=== PATIENT | male | born 1985 | race Caucasian/White ===

== ENCOUNTER → 2016-05-11 | Outpatient (CLI) | payer OTHER ==
--- NOTE | 2016-05-11 17:03 | REP ---
MAXILLOFACIAL CT WITHOUT CONTRAST: HISTORY: Chronic sinusitis. There is complete opacification of the left ethmoid sinus. There is expansion of the left ethmoid sinus. There is extension into the left maxillary, frontal and sphenoid sinuses and left nasal passage. . The left ethmoid sinus septa and left uncinate process are poorly seen. A small defect is present in the left cribriform plate. There is complete opacification of the frontal sinuses and left sphenoid sinus. Mild mucosal thickening is present in the right ethmoid and left maxillary sinuses. The right maxillary sinus is clear. The inferior and right middle nasal turbinates are partially paradoxical. The left middle nasal turbinate is poorly seen. There is deviation of the nasal septum to the left. The medial benavidez of the orbits and optic canals are intact. IMPRESSION: There is an expansile lesion in the left ethmoid sinus with extension into the left maxillary, frontal and sphenoid sinuses and left nasal passage. This may represent a squamous or adenocarcinoma. MR without and with contrast may be helpful for further evaluation. Signed by Maximiliano Lopez MD 05/11/2016 05:06 P
== END ==
LOC: M RAD 16:13
PROVIDERS: ATTEND Otolaryngology
DX: J32.4 Chronic pansinusitis (principal)

== ENCOUNTER → 2016-06-27 | Outpatient (CLI) | payer OTHER | LOC: M RAD 15:06 | PROVIDERS: ATTEND Otolaryngology | DX: J34.2 Deviated nasal septum (principal) ==

== ENCOUNTER → 2016-07-16 | Day surgery (SDC) | payer OTHER ==
[~2016-07-16] VITALS: Ht 177.8 cm; Wt 72.6 kg
[~2016-07-16] MED LIST: ACETAMINOPH W/CODEINE #3 TAB UD PO PRN; DESFLURANE 240 ML INHALANT As Ordered ONE; EPINEPHrine 1MG/ML INJ 30ML MD-VIAL As Ordered ONE; ESMOLOL INJ 100MG/10ML VIAL As Ordered ONE; FLUTISP; GLYCOPYRROLATE INJ 0.2 MG/ML 2 ML VIAL As Ordered ONE; HYDR-3713 PO; LIDOCAINE 2% INJ 100 MG/5 ML SDV (FOR ANES.) As Ordered ONE; LIDOCAINE W/EPINEPHRINE 1% 20ML VIAL As Ordered ONE; LR 1,000 ML IV SCH; METHYLENE BLUE 0.5% (5MG/ML) 10 ML AMP (PROVAYBLUE)(Q9968 PER 1MG) As Ordered ONE; METOCLOPRAMIDE INJ 10MG/2ML VIAL (J2765) As Ordered ONE; MIDAZOLAM INJ 2 MG/2 ML VIAL (J2250) As Ordered ONE; MORPHINE 10 MG/ML 1ML VIAL IV PRN; NEOSTIGMINE 1MG/ML 5 ML SYRINGE (J2710) As Ordered ONE; NORCO, ANEXSIA 5/325MG TABLET (HYDROcodone/ACETAMINOPHEN) PO PRN; ONDANSETRON 4MG/2ML VIAL (J2405) As Ordered ONE; ONDANSETRON 4MG/2ML VIAL (J2405) IV PRN; PHENYLephrine HCL 500 MCG/5 ML (100MCG/ML) SYRINGE (J2370) As Ordered ONE; PROPOFOL 200 MG/20 ML VIAL As Ordered ONE; ROCURONIUM BROMIDE 50 MG/5 ML VIAL As Ordered ONE; dexameTHASONE 4 MG/ML 1ML VIAL (J1100) As Ordered ONE; fentaNYL 100 MCG/2 ML INJECTION (J3010) IV PRN; fentaNYL 250 MCG/5 ML INJECTION (J3010) As Ordered ONE
[2016-07-16 17:40] VITALS: BP 121/68
--- NOTE | 2016-07-17 10:58 | RO ---
DATE OF PROCEDURE: 07/16/2016 PREOPERATIVE DIAGNOSIS: Chronic rhinosinusitis. POSTOPERATIVE DIAGNOSIS: Chronic rhinosinusitis. PROCEDURE: Septoplasty, bilateral ethmoidectomy, left sphenoidotomy and sphenoidectomy, left intranasal antrostomy, left polypectomy, and bilateral nasofrontal sinusotomy, left sphenoid sinus lavage. SURGEON: Dr. Apolinar Gore RISK REDUCTION COUNSELOR: ANESTHESIA: FINDINGS: There was polypoid tissue within the nose on both sides, especially on the left side. There were fungal elements within the sphenoid sinus on the left side and also the anterior ethmoid sinus area on the right side. This was flushed clean. DESCRIPTION OF PROCEDURE: Under general anesthesia with the patient intubated, the patient was prepped and draped in the usual manner. I used pledgets of adrenaline 1:100,000 and infiltrated with lidocaine and epinephrine. I made an incision on the left side anteriorly and elevated the subperichondrial periosteal plane. I removed a portion of the ethmoid plate and vomer maxillary crest, which were deviated. Once this was done, I had good access to the nose on both sides. I closed that incision with interrupted 4-0 Vicryl. Attention was then directed towards that left side. I went between the middle turbinate and lateral nasal wall to remove polypoid tissue. I then opened up into the anterior ethmoid air cells and directed dissection anterior to posterior. I dissected down to the sphenoid sinus. There was debris within the sphenoid sinus, which I irrigated to wash out, which appeared to be fungal. I enlarged the natural sinus osteum superiorly, inferiorly, and posteriorly, as well as anteriorly. I then identified the nasofrontal area, opened up all the tissue. There was some polypoid tissue blocking this area, and I opened this up so I could see right into the frontal sinus. I did use the microdebrider during the procedure. I did use the navigation system during the procedure. So, lavage was done of the sphenoid sinus. On the right side, I opened between the middle turbinate and lateral nasal wall, the anterior ethmoid air cells, and the posterior ethmoid air cells. I then dissected superiorly and removed the anterosuperior portion of the middle turbinate and opened up so I could see right into the frontal sinus well. Less than 100 mL of estimated blood loss. The patient tolerated the procedure well. The above findings were seen. I put Propel implants into both sides of the nose. The patient was extubated and transferred to the recovery room in excellent condition. CORINNA
== END ==
LOC: M SDC 09:21
PROVIDERS: ATTEND Otolaryngology
DX: J32.9 Chronic sinusitis, unspecified (principal); J33.0 Polyp of nasal cavity; J34.2 Deviated nasal septum; R06.83 Snoring; Z98.890 Other specified postprocedural states
CPT/HCPCS: 30520; 31255; 31256; 31276; 31288; 88300; 88305; 88312; C2625; J1100; J2250; J2370; J2405; J2710; J2765; J3010; Q9968